=== PATIENT | male | born 1955 | race Caucasian/White ===

== ENCOUNTER → 2017-05-03 | Outpatient (REF) | payer BC ==
[2017-05-03 11:31] LABS: MEAN CORPUSCULAR HEMOGLOBIN 21.7 pg (27.0-33.0); MEAN CORPUSCULAR HGB CONC 31.7 g/dl (32.0-36.5); MEAN CORPUSCULAR VOLUME 68.3 fl (80.0-96.0); RED CELL DISTRIBUTION WIDTH 17.8 % (11.5-14.5); WHITE BLOOD COUNT 3.9 K/mm3 (4.0-10.0)
[2017-05-03 11:54] LABS: ALBUMIN/GLOBULIN RATIO 1.25 (1.00-1.93); ALKALINE PHOSPHATASE 77 U/L (45-117); ALT/SGPT 26 U/L (12-78); ANION GAP 8 MEQ/L (8-16); AST/SGOT 22 U/L (15-37); BILIRUBIN,DIRECT 0.2 MG/DL (0.0-0.2); BILIRUBIN,TOTAL 0.9 MG/DL (0.2-1.0); BLOOD UREA NITROGEN 19 MG/DL (7-18); CALCIUM LEVEL 8.9 MG/DL (8.8-10.2); CARBON DIOXIDE LEVEL 26 MEQ/L (21-32); CHLORIDE LEVEL 109 MEQ/L (98-107); CREATININE FOR GFR 0.94 MG/DL (0.70-1.30); GLOMERULAR FILTRATION RATE > 60.0 (>49); GLUCOSE, FASTING 88 MG/DL (80-110); PHOSPHORUS LEVEL 2.8 MG/DL (2.5-4.9); POTASSIUM SERUM 3.7 MEQ/L (3.5-5.1); SODIUM LEVEL 143 MEQ/L (136-145); TOTAL PROTEIN 7.2 GM/DL (6.4-8.2)
== END ==
LOC: M LABDRAW1 10:17
PROVIDERS: ATTEND Podiatrist Foot & Ankle Surgery
DX: B35.1 Tinea unguium (principal); Z79.899 Other long term (current) drug therapy

== ENCOUNTER → 2018-06-05 | Outpatient (REF) | payer BC ==
[2018-06-05 15:58] LABS: HEMATOCRIT 38.8 % (42.0-52.0); HEMOGLOBIN 12.3 g/dl (13.5-17.5); MEAN CORPUSCULAR HEMOGLOBIN 20.7 pg (27.0-33.0); MEAN CORPUSCULAR HGB CONC 31.7 g/dl (32.0-36.5); MEAN CORPUSCULAR VOLUME 65.3 fl (80.0-96.0); PLATELET COUNT, AUTOMATED 139 10^3/uL (150-450); RED BLOOD COUNT 5.94 10^6/uL (4.30-6.10); RED CELL DISTRIBUTION WIDTH 20.1 % (11.5-14.5); WHITE BLOOD COUNT 5.1 10^3/uL (4.0-10.0)
[2018-06-05 16:54] LABS: ALBUMIN/GLOBULIN RATIO 1.25 (1.00-1.93); ALKALINE PHOSPHATASE 72 U/L (45-117); ALT/SGPT 25 U/L (12-78); ANION GAP 12 MEQ/L (8-16); AST/SGOT 17 U/L (7-37); BILIRUBIN,DIRECT 0.3 MG/DL (0.0-0.2); BILIRUBIN,TOTAL 1.3 MG/DL (0.2-1.0); BLOOD UREA NITROGEN 24 MG/DL (7-18); CALCIUM LEVEL 9.3 MG/DL (8.8-10.2); CARBON DIOXIDE LEVEL 23 MEQ/L (21-32); CHLORIDE LEVEL 110 MEQ/L (98-107); CREATININE FOR GFR 1.15 MG/DL (0.70-1.30); GLOMERULAR FILTRATION RATE > 60.0 (>49); GLUCOSE, FASTING 75 MG/DL (70-100); POTASSIUM SERUM 4.2 MEQ/L (3.5-5.1); SODIUM LEVEL 145 MEQ/L (136-145); TOTAL PROTEIN 7.2 GM/DL (6.4-8.2)
== END ==
LOC: M LABDRAW1 13:54
DX: B35.1 Tinea unguium (principal); Z79.899 Other long term (current) drug therapy
CPT/HCPCS: 80076

== ENCOUNTER 2018-06-13 10:26 | Day surgery (SDC) | payer BC ==
[2018-06-13] MEDS: LR 1,000 ML IV (11:37)
[2018-06-13] MEDS ORDERED: LIDOCAINE 2% INJ 100 MG/5 ML SDV (FOR ANES.) As Ordered (13:03)
[2018-06-13] MEDS ORDERED: fentaNYL 100 MCG/2 ML INJECTION (J3010) As Ordered ×2 (13:03→14:24)
[2018-06-13] MEDS ORDERED: MIDAZOLAM INJ 2 MG/2 ML VIAL (J2250) As Ordered (13:03)
[2018-06-13] MEDS ORDERED: PROPOFOL 200 MG/20 ML VIAL As Ordered (13:04)
[2018-06-13] MEDS ORDERED: ROCURONIUM BROMIDE 50 MG/5 ML VIAL As Ordered (13:04)
[2018-06-13] MEDS: ceFAZolin SOD 1 GM in D5W MINI-BAG PLUS 50 ML IV (13:45)
[2018-06-13] MEDS ORDERED: dexameTHASONE 4 MG/ML 1ML VIAL (J1100) As Ordered (13:59)
[2018-06-13] MEDS ORDERED: GLYCOPYRROLATE INJ 0.2 MG/ML 2 ML VIAL As Ordered (13:59)
[2018-06-13] MEDS ORDERED: ONDANSETRON 4MG/2ML VIAL (J2405) As Ordered (13:59)
[2018-06-13] MEDS ORDERED: KETOROLAC 60 MG/2 ML VIAL (J1885) As Ordered (13:59)
[2018-06-13] MEDS: BUPIVACAINE/EPIN 0.25% 30 ML VIAL As Ordered (14:51)
[2018-06-13] MEDS ORDERED: LR 1,000 ML IV ×2 (15:15)
[2018-06-13] MEDS ORDERED: ONDANSETRON 4MG/2ML VIAL (J2405) IV (15:15)
[2018-06-13] MEDS ORDERED: NORCO, ANEXSIA 5/325MG TABLET (HYDROcodone/ACETAMINOPHEN) PO (15:15)
[2018-06-13] MEDS ORDERED: MORPHINE 2 MG/ML 1ML SYRINGE (J2270) IV (15:15)
[2018-06-13] MEDS: PERCOCET 5MG/325MG TAB PO ×2 (15:30→16:15)
[2018-06-13] MEDS: fentaNYL 100 MCG/2 ML INJECTION (J3010) IV ×4 (15:40→15:55)
[2018-06-13] MEDS ORDERED: PERCOCET 5MG/325MG TAB As Ordered (16:17)
[2018-06-13] MEDS: ONDANSETRON 4MG/2ML VIAL (J2405) IV (18:40)
[2018-06-13] MEDS ORDERED: KETOROLAC 30 MG/ML VIAL (J1885) IV (20:00)
== END 2018-06-13 19:10 | disposition home or self-care (01) ==
LOC: M SDC 10:26
DX: K40.90 Unilateral inguinal hernia, without obstruction or gangrene, not specified as recurrent (principal); K21.9 Gastro-esophageal reflux disease without esophagitis; M54.5 Low back pain
CPT/HCPCS: 49650

== ENCOUNTER 2018-10-09 09:59 | Day surgery (SDC) | payer BC ==
[~2018-10-09] VITALS: Ht 177.8 cm; Wt 60.3 kg
[~2018-10-09 09:59] MED LIST: IBUP200C25 PO; NS 1,000 ML IV ONE
[2018-10-09] MEDS ORDERED: PROPOFOL 500 MG/50 ML VIAL As Ordered ONE (11:11)
[2018-10-09] MEDS ORDERED: fentaNYL 100 MCG/2 ML INJECTION (J3010) As Ordered ONE (11:11)
[2018-10-09] MEDS ORDERED: LIDOCAINE 2% INJ 100 MG/5 ML SDV (FOR ANES.) As Ordered ONE (11:11)
--- NOTE | 2018-10-09 11:25 | ROOR ---
Patient Name: Hudson Law Procedure Date: 10/09/2018 11:07 AM Date of : 1955 Age: 63 Room: [facility] Gender: Male Note Status: Finalized Procedure: Upper GI endoscopy Indications: Generalized abdominal distress, Abdominal bloating, Weight loss Providers: Wilmer LITTLE MD Referring MD: Ermias Dalton MD Requesting Provider: Medicines: Monitored Anesthesia Care Complications: No immediate complications. Procedure: Pre-Anesthesia Assessment: - The heart rate, respiratory rate, oxygen saturations, blood pressure, adequacy of pulmonary ventilation, and response to care were monitored throughout the procedure. The Endoscope was introduced through the mouth, and advanced to the second part of duodenum. The upper GI endoscopy was accomplished without difficulty. The patient tolerated the procedure well. Findings: The examined esophagus was normal. Very small (insignificant) Hiatal Hernia. The entire examined stomach was normal. The examined duodenum was normal. Biopsies for histology were taken with a cold forceps for evaluation of celiac disease. Impression: - Normal esophagus. - Very small (insignificant) Hiatal Hernia. - Normal stomach. - Normal examined duodenum. Biopsied. Recommendation: - Telephone endoscopist for pathology results in 2 weeks. - Lactose free diet for 1 week. Wilmer Little MD Wilmer LITTLE MD 10/09/2018 11:25:32 AM This report has been signed electronically. Number of Addenda: 0 Note Initiated On: 10/09/2018 11:07 AM Estimated Blood Loss: Estimated blood loss: none.
--- NOTE | 2018-10-09 11:43 | ROOR ---
Patient Name: Hudson Law Procedure Date: 10/09/2018 11:08 AM Date of : 1955 Age: 63 Room: [facility] Gender: Male Note Status: Finalized Procedure: Colonoscopy Indications: Generalized abdominal distress, Weight loss Providers: Wilmer LITTLE MD Referring MD: Ermias Dalton MD Requesting Provider: Medicines: Monitored Anesthesia Care Complications: No immediate complications. Procedure: Pre-Anesthesia Assessment: - The heart rate, respiratory rate, oxygen saturations, blood pressure, adequacy of pulmonary ventilation, and response to care were monitored throughout the procedure. The Colonoscope was introduced through the anus and advanced to 10 cm into the ileum. The colonoscopy was performed without difficulty. The patient tolerated the procedure well. The quality of the bowel preparation was good. Findings: The perianal and digital rectal examinations were normal. The colon (entire examined portion) appeared normal. The terminal ileum appeared normal. Internal hemorrhoids were found during retroflexion. The hemorrhoids were medium-sized and large. The colon (entire examined portion) was redundant. Impression: - The entire colon is normal. - The examined portion of the ileum was normal. - Moderate Internal hemorrhoids. - Moderately redundant colon. - No specimens collected. Recommendation: - Lactose free diet for 1 week. (Trial) - Use Bentyl (dicyclomine) 10-20 mg every 4-6 hrs as needed for bloating/gas. (Trial) - (the script was sent to your pharmacy on file) Wilmer Little MD Wilmer LITTLE MD 10/09/2018 11:43:00 AM This report has been signed electronically. Number of Addenda: 0 Note Initiated On: 10/09/2018 11:08 AM Estimated Blood Loss: Estimated blood loss: none.
[2018-10-09 12:00] VITALS: BP 159/72
== END 2018-10-09 12:07 | disposition home or self-care (01) ==
LOC: M OPP 09:59
PROVIDERS: ATTEND Internal Medicine Gastroenterology
DX: R10.84 Generalized abdominal pain (principal); R63.4 Abnormal weight loss; K64.8 Other hemorrhoids; Q43.8 Other specified congenital malformations of intestine; K44.9 Diaphragmatic hernia without obstruction or gangrene; R14.0 Abdominal distension (gaseous)
CPT/HCPCS: 43239; 45378; 88305; J3010

== ENCOUNTER → 2018-10-13 | Outpatient (CLI) | payer BC ==
[~2018-10-13] MED LIST changes: -NS 1,000 ML IV ONE
== END ==
LOC: M SMT 09:16
PROVIDERS: ATTEND Nurse Practitioner Family
DX: Z12.5 Encounter for screening for malignant neoplasm of prostate (principal)

== ENCOUNTER → 2020-12-08 | Outpatient (CLI) | payer SELFPAY | LOC: M LABSMTC 09:54 | PROVIDERS: ATTEND Pediatrics | DX: Z20.822 Contact with and (suspected) exposure to COVID-19 (principal) ==

== ENCOUNTER → 2021-03-03 | Outpatient (REF) | payer MEDICARE ==
[2021-03-03 13:06] LABS: PERCENT SATURATION 25.8 % (19.7-50.0)
[2021-03-03 13:18] LABS: HEMATOCRIT 42.8 % (42.0-52.0); HEMOGLOBIN 13.1 g/dl (13.5-17.5); MEAN CORPUSCULAR HEMOGLOBIN 20.5 pg (27.0-33.0); MEAN CORPUSCULAR HGB CONC 30.6 g/dl (32.0-36.5); MEAN CORPUSCULAR VOLUME 66.9 fl (80.0-96.0); PLATELET COUNT, AUTOMATED 147 10^3/uL (150-450); WHITE BLOOD COUNT 3.7 10^3/uL (4.0-10.0)
[2021-03-03 14:05] LABS: ANISOCYTOSIS 2+; ATYPICAL LYMPH 3 % (0-5); EOSINOPHILS 3 % (0-3); LYMPHOCYTES 45 % (16-44); MONOCYTES 4 % (0-5); NEUTROPHILS 45 % (28-66); PLATELET ESTIMATE NORMAL (NORMAL); SCHISTOCYTES 1+
== END ==
LOC: M LAB REF 12:22
PROVIDERS: ATTEND Family Medicine
DX: D64.9 Anemia, unspecified (principal)

== ENCOUNTER → 2021-07-03 | Outpatient (REF) | payer MEDICARE ==
[2021-07-03 12:15] LABS: PERCENT SATURATION 28.9 % (19.7-50.0)
== END ==
LOC: M LAB REF 11:13
PROVIDERS: ATTEND Internal Medicine
DX: D50.9 Iron deficiency anemia, unspecified (principal)

== ENCOUNTER → 2021-08-20 | Outpatient (CLI) | payer MEDICARE ==
[2021-08-20 11:45] LABS: BLOOD UREA NITROGEN 29 MG/DL (7-18); CREATININE FOR GFR 1.23 MG/DL (0.70-1.30); GLOMERULAR FILTRATION RATE > 60.0 (>49)
== END ==
LOC: M LAB 10:25
PROVIDERS: ATTEND Otolaryngology
DX: H90.3 Sensorineural hearing loss, bilateral (principal)

== ENCOUNTER → 2021-08-28 | Outpatient (CLI) | payer MEDICARE ==
--- NOTE | 2021-08-28 16:43 | REPVR ---
PROCEDURE INFORMATION: Exam: MR Head Without and With Contrast; Internal Auditory Canals Exam date and time: 08/28/2021 3:25 PM Age: 66 years old Clinical indication: Other: Hearing loss and tinitis lt>rt; Additional info: [facility]an TECHNIQUE: Imaging protocol: MR of the head without and with intravenous contrast. Exam focused on the internal auditory canals. Contrast material: PROHANCE; Contrast volume: 12 ml; Contrast route: INTRAVENOUS (IV); COMPARISON: No relevant prior studies available. FINDINGS: Brain: There is no acute intracranial hemorrhage, cerebral edema, or midline shift. No restricted diffusion is present to suggest acute infarction. No enhancing lesions were identified after the administration of contrast. Ventricles: No hydrocephalus. Sella: Incidental note is made of an enlarged intrasellar cistern. Sinuses: Moderate mucosal thickening is present in the paranasal sinuses. Mastoid air cells: Unremarkable. No effusions. Internal auditory canals: The bilateral inner ear structures appear unremarkable. The internal auditory canals are within normal limits. The bilateral seventh and eighth nerves are unremarkable. No cerebellopontine angle mass is present. No enhancing lesions were identified after the administration of contrast. Bones/joints: Unremarkable. IMPRESSION: No acute abnormality. Electronically signed by: Shola Burr On 08/28/2021 16:43:07 PM
== END ==
LOC: M PLARAD 13:22
PROVIDERS: ATTEND Otolaryngology
DX: H90.3 Sensorineural hearing loss, bilateral (principal)

== ENCOUNTER → 2022-08-25 | Outpatient (CLI) | payer MEDICARE | LOC: M WUC 11:10 | PROVIDERS: ATTEND Family Medicine | DX: R06.02 Shortness of breath (principal) ==

== ENCOUNTER → 2022-09-02 | Outpatient (REF) | payer MEDICARE | LOC: M LAB REF 13:52 | PROVIDERS: ATTEND Family Medicine | DX: R06.02 Shortness of breath (principal); R53.83 Other fatigue ==

== ENCOUNTER → 2022-10-05 | Outpatient (CLI) | payer MEDICARE | LOC: M PLAIMG 08:31 | PROVIDERS: ATTEND Internal Medicine Pulmonary Disease | DX: R06.02 Shortness of breath (principal) ==

== ENCOUNTER 2023-02-16 09:27 | Outpatient (RCR) | payer MEDICARE | END 2023-02-20 | LOC: M PT 09:27 | PROVIDERS: ATTEND Family Medicine | DX: S76.2 Injury of adductor muscle, fascia and tendon of thigh (principal) | CPT/HCPCS: 97162; G0283 ==

== ENCOUNTER 2023-03-04 09:08 | Outpatient (RCR) | payer MEDICARE | END 2023-03-23 | LOC: M PT 09:08 | PROVIDERS: ATTEND Family Medicine | DX: S76.2 Injury of adductor muscle, fascia and tendon of thigh (principal) ==

== ENCOUNTER → 2023-05-24 | Outpatient (CLI) | payer MEDICARE ==
[~2023-05-24] MED LIST changes: +METHACHOLINE KIT INH ONE
== END ==
LOC: M CARPUL 09:41
PROVIDERS: ATTEND Internal Medicine Pulmonary Disease
DX: R06.02 Shortness of breath (principal)
CPT/HCPCS: 94070; 95070; J7674

== ENCOUNTER → 2023-06-13 | Outpatient (REF) | payer MEDICARE ==
[~2023-06-13] MED LIST changes: -METHACHOLINE KIT INH ONE
[2023-06-13 18:36] LABS: PERCENT SATURATION 26.4 % (19.7-50.0)
[2023-06-13 18:37] LABS: FERRITIN 192.3 NG/ML (10.5-307.3)
== END ==
LOC: M LAB REF 16:38
PROVIDERS: ATTEND Physician Assistant Medical
DX: R53.83 Other fatigue (principal); D64.9 Anemia, unspecified

== ENCOUNTER → 2024-07-03 | Outpatient (CLI) | payer MEDICARE | LOC: M WUC 15:23 | PROVIDERS: ATTEND Nurse Practitioner Family | DX: M79.643 Pain in unspecified hand (principal); M19.041 Primary osteoarthritis, right hand; M19.042 Primary osteoarthritis, left hand; M18.0 Bilateral primary osteoarthritis of first carpometacarpal joints; M65.241 Calcific tendinitis, right hand ==

== ENCOUNTER → 2025-03-06 | Outpatient (CLI) | payer MEDICARE | LOC: M SOG 06:50 | PROVIDERS: ATTEND Neuromusculoskeletal Medicine, Sports Medicine | DX: M25.562 Pain in left knee (principal); M25.561 Pain in right knee ==